=== PATIENT | female | born 1970 | race Caucasian/White ===

== ENCOUNTER 2016-05-21 21:58 | Emergency (ER) | payer OTHER ==
[2014-03-05 09:58] VITALS: BMI 28.3
[~2016-05-21 21:58] MED LIST: COLACE100 MG PO; HYDROCODONE-APA1 TAB PO; LINZESS145 MCG PO; LISINOPRIL-HCTZ1 T13 PO; MIRALAX17 GM PO
[2016-05-21 22:25] LABS: BASOPHILS 0.2 % (0.0-2.0); EOSINOPHILS 2.2 % (0-7); HEMATOCRIT 38.7 % (36.0-48.0); HEMOGLOBIN 12.4 g/dL (12-16); IMMATURE GRANULOCYTES 0.2 % (0-5); LYMPHOCYTES 26.5 % (15-50); MCV 90.6 fL (80.0-100.0); MEAN PLATELET VOLUME 9.9 fL (7.4-10.4); MONOCYTES 8.7 % (2-11); NEUTROPHILS 62.2 % (40-80); PLATELET COUNT 323 10x3/uL (130-400); RBC 4.27 10x6/uL (4.00-5.40); RDW 13.6 % (11.5-14.5); WBC 8.3 10x3/uL (4.8-10.8)
[2016-05-21 22:53] LABS: ALBUMIN 3.3 g/dL (3.4-5.0); ALKALINE PHOSPHATASE 99 U/L (46-116); ALT (SGPT) 18 U/L (10-68); AMYLASE - SERUM 25 U/L (25-115); BILIRUBIN - TOTAL 0.22 mg/dL (0.2-1.3); CALC OSMOLALITY 281 mosm/kg (275-300); CALCIUM 8.8 mg/dL (8.5-10.1); CARBON DIOXIDE 32.3 mmol/L (21.0-32.0); CHLORIDE - SERUM 102 mmol/L (98-107); CREATINE KINASE 71 UL (21-215); CREATININE - SERUM 0.8 mg/dL (0.6-1.3); GLUCOSE 142 mg/dL (74-106); LIPASE 120 U/L (73-393); POTASSIUM - SERUM 3.7 mmol/L (3.5-5.1); PROTEIN - SERUM 7.1 g/dL (6.4-8.2); SODIUM 141 mmol/L (136-145); UREA NITROGEN 11 mg/dL (7-18); eGFR NON AFRICAN AMERICAN 82 mL/min (90-120)
== END 2016-05-22 02:35 | disposition home or self-care (01) ==
LOC: D.ER 21:58
PROVIDERS: Emergency Medicine; Nurse Practitioner Family
DX: R10.12 Left upper quadrant pain (principal); I10 Essential (primary) hypertension

== ENCOUNTER → 2017-02-07 09:49 | Outpatient (CLI) | payer OTHER ==
[2014-03-05 09:58] VITALS: BMI 28.3
== END | disposition home or self-care (01) ==
LOC: D.MRI 09:49
DX: M25.562 Pain in left knee (principal)

== ENCOUNTER → 2017-05-31 17:04 | Outpatient (CLI) | payer OTHER ==
[2014-03-05 09:58] VITALS: BMI 28.3
== END | disposition home or self-care (01) ==
LOC: D.MAMMO 13:00
DX: N64.4 Mastodynia (principal)

== ENCOUNTER 2017-06-09 07:13 | Emergency (ER) | payer OTHER ==
[2014-03-05 09:58] VITALS: BMI 28.3
[2017-06-09 07:41] LABS: BASOPHILS 0.1 % (0-2); EOSINOPHILS 0.3 % (0-7); HEMOGLOBIN 14.9 g/dL (12-16); IMMATURE GRANULOCYTES 0.2 % (0-5); LYMPHOCYTES 5.1 % (15-50); MCH 29.3 pg (26.0-34.0); MCHC 33.1 g/dL (31.0-37.0); MCV 88.6 fL (80.0-100.0); MEAN PLATELET VOLUME 9.8 fL (7.4-10.4); MONOCYTES 4.8 % (2-11); NEUTROPHILS 89.5 % (40-80); PLATELET COUNT 358 10x3/uL (130-400); RBC 5.08 10x6/uL (4.00-5.40); RDW 15.1 % (11.5-14.5); WBC 10.1 10x3/uL (4.8-10.8)
[2017-06-09 07:54] LABS: ALBUMIN 3.7 g/dL (3.4-5.0); BILIRUBIN - TOTAL 0.63 mg/dL (0.2-1.3); CALCIUM 8.9 mg/dL (8.5-10.1); CARBON DIOXIDE 28.1 mmol/L (21.0-32.0); CREATININE - SERUM 1.1 mg/dL (0.6-1.3); POTASSIUM - SERUM 4.1 mmol/L (3.5-5.1)
[2017-06-09 08:41] LABS: APPEARANCE CLEAR (CLEAR); BILIRUBIN NEGATIVE (NEGATIVE); COLOR YELLOW (YELLOW); GLUCOSE NEGATIVE (NEGATIVE); KETONE NEGATIVE (NEGATIVE); NITRITE NEGATIVE (NEGATIVE); PROTEIN NEGATIVE (NEGATIVE); UROBILINOGEN NORMAL (NORMAL)
[2017-06-09 08:43] LABS: BACTERIA FEW /hpf (NONE SEEN); EPITHELIAL CELLS 0-5 /hpf (0-5); WHITE CELLS - URINE 0-5 /hpf (0-5)
== END 2017-06-09 10:07 | disposition home or self-care (01) ==
LOC: D.ER 07:13
PROVIDERS: Emergency Medicine
DX: R19.7 Diarrhea, unspecified (principal); R10.9 Unspecified abdominal pain; I10 Essential (primary) hypertension; F17.200 Nicotine dependence, unspecified, uncomplicated

== ENCOUNTER → 2017-12-25 20:38 | Outpatient (CLI) | payer OTHER ==
[2014-03-05 09:58] VITALS: BMI 28.3
== END | disposition home or self-care (01) ==
LOC: D.MAMMO 14:30
DX: N64.9 Disorder of breast, unspecified (principal)

== ENCOUNTER 2018-06-20 06:32 | Day surgery (SDC) | payer OTHER ==
[~2018-06-20] VITALS: Ht 162.6 cm; Wt 83.9 kg
[2018-06-20 06:52] LABS: BASOPHILS 0.5 % (0-2); EOSINOPHILS 2.5 % (0-7); HEMATOCRIT 41.8 % (36.0-48.0); HEMOGLOBIN 14.4 g/dL (12-16); IMMATURE GRANULOCYTES 0.2 % (0-5); LYMPHOCYTES 28.5 % (15-50); MCH 31.8 pg (26.0-34.0); MCHC 34.4 g/dL (31.0-37.0); MCV 92.3 fL (80.0-100.0); MEAN PLATELET VOLUME 9.7 fL (7.4-10.4); NEUTROPHILS 59.3 % (40-80); PLATELET COUNT 372 10x3/uL (130-400); RBC 4.53 10x6/uL (4.00-5.40); RDW 13.3 % (11.5-14.5); WBC 6.1 10x3/uL (4.8-10.8)
[2018-06-20 07:07] LABS: ANION GAP 11.3 mmol/L (8-16); CALCIUM 8.8 mg/dL (8.5-10.1); CARBON DIOXIDE 30.1 mmol/L (21.0-32.0); CREATININE - SERUM 0.9 mg/dL (0.6-1.3); POTASSIUM - SERUM 3.4 mmol/L (3.5-5.1)
[2018-06-20] MEDS ORDERED: EZFE 200200 MG PO (07:58)
[2018-06-20] MEDS ORDERED: STOOL SOFTENER100 M1 PO (07:58)
[2018-06-20 08:08] VITALS: BP 110/68; Ht 162.6 cm; Wt 83.9 kg
[2018-06-20] MEDS ORDERED: PERCOCET 5-3251 TAB PO (09:51)
--- NOTE | 2018-06-20 10:55 | NUR ---
REC'D FROM RR. FAMILY AT BEDSIDE. DRINK BROUGHT TO PATIENT. DRESSINGS CDI TO SURGICAL INCISIONS.
--- NOTE | 2018-06-20 11:25 | NUR ---
RAMIRO DENISE SERVED TO PATIENT. FAMILY AT BEDSIDE.
--- NOTE | 2018-06-20 11:55 | NUR ---
TOLERATED DIET. NO URGE TO VOID AT THIS TIME. FAMILY AT BEDSIDE.
--- NOTE | 2018-06-20 12:30 | NUR ---
NO CHANGES NOTED. DRESSINGS CDI TO ABDOMEN INCISIONS. FAMILY AT BEDSIDE.
--- NOTE | 2018-06-20 13:10 | NUR ---
AMBULATORY AND VOIDED WITHOUT DIFFICULTY. IV DC'D WITH CATHETER INTACT.
--- NOTE | 2018-06-20 13:30 | NUR ---
WRITTEN AND VERBAL DC INST. GIVEN TO PT ALONG WITH RX. VERBALIZED UNDERSTANDING.
--- NOTE | 2018-06-20 13:55 | NUR ---
DC'D HOME WITH FAMILY VIA PRIVATE VEHICLE. TAKEN TO VEHICLE VIA WC. STABLE AT TIME OF DC.
--- NOTE | 2018-06-20 14:04 | OP ---
PATIENT NAME: KEVIN DASILVA MEDICAL RECORD: [id number] :70 LOCATION:D.OPS ADMISSION DATE: SURGEON: MELLO BASS MD DATE OF OPERATION: 06/20/2018 PREOPERATIVE DIAGNOSES: 1. Gallstones. 2. Hypertension. 3. Hypercholesterolemia. 4. Chronic cholecystitis. POSTOPERATIVE DIAGNOSES: 1. Gallstones. 2. Hypertension. 3. Hypercholesterolemia. 4. Chronic cholecystitis. PROCEDURE: Laparoscopic cholecystectomy. SURGEON: Mello Bass MD HOME DEPOT REP: Marissa Campbell APRN REPORT OF PROCEDURE: The patient's abdomen was prepped and draped in sterile fashion. A cutdown was made on the superior aspect of the umbilicus. The 0 Vicryls were placed in the fascia bilaterally and the fascia was incised with 15-blade. I then bluntly entered the peritoneal cavity and placed a 12-mm Afsaneh port. Under direct visualization, a 5-mm trocar was placed in the epigastrium and 2 more 5-mm trocars were placed in the right subcostal region. The gallbladder was elevated. It was noted to be chronically contracted with a stone present at the infundibulum. Cystic artery and cystic duct were dissected free and these were clipped proximally and distally and ligated in standard fashion. The gallbladder was taken off the liver bed using electrocautery and placed in the right upper quadrant. Any bleeding from the liver bed was then treated with electrocautery. At this point, the ports and insufflation were then removed and the gallbladder was taken out through the umbilicus. The umbilical fascia was closed with interrupted 0 Vicryls times 3. The wounds were then irrigated out with normal saline and infused with 10 mL of 0.25% Marcaine with epinephrine. The skin incisions were all closed with subcutaneous 5-0 Monocryl and dressed appropriately. COMPLICATIONS: None. CONDITION: Stable. ANESTHESIA: General endotracheal and local. BLOOD LOSS: Minimal. TRANSINT:[id number] Voice Confirmation ID: [id number] DOCUMENT ID: [id number] OPERATIVE REPORT [id number] KEVIN DASILVA MELLO BASS MD at 1404 CC: GREGORY ROQUE [id number] DICTATION DATE: 06/20/18 0955 [employer] CONSULTANT: 06/20/18 1211 [facility] [address] [facility] [place] [address]
== END 2018-06-20 13:55 | disposition home or self-care (01) ==
LOC: D.OPS 06:32 → D.PAN 09:15 → D.OPS 13:55
PROVIDERS: ATTEND Surgery
DX: K80.10 Calculus of gallbladder with chronic cholecystitis without obstruction (principal); I10 Essential (primary) hypertension; E78.00 Pure hypercholesterolemia, unspecified; Z01.812 Encounter for preprocedural laboratory examination